=== PATIENT | male | born 1990 | race Two or more races ===

== ENCOUNTER → 2016-09-14 | Outpatient (REF) | payer OTHER | LOC: M SMT 16:53 | PROVIDERS: ATTEND Nurse Practitioner Women's Health | DX: N50.819 Testicular pain, unspecified (principal) | CPT/HCPCS: 81001; 87086; G0463 ==

== ENCOUNTER → 2016-10-06 | Day surgery (SDC) | payer OTHER ==
[~2016-10-06] VITALS: Ht 177.8 cm; Wt 61.2 kg
[~2016-10-06] MED LIST: BACITRACIN OINT 30GM As Ordered ONE; BUPIVACAINE HCL 0.25% 30 ML VIAL As Ordered ONE; BUPIVACAINE HCL 0.25% 30 ML VIAL XX ONE; LIDOCAINE 2% INJ 100 MG/5 ML SDV (FOR ANES.) As Ordered ONE; LR 1,000 ML IV SCH; MIDAZOLAM INJ 2 MG/2 ML VIAL (J2250) As Ordered ONE; NALOXONE INJ 0.4 MG/1 ML VIAL (J2310) As Ordered ONE; ONDANSETRON 4MG/2ML VIAL (J2405) As Ordered ONE; ONDANSETRON 4MG/2ML VIAL (J2405) IV PRN; PERCOCET 5MG/325MG TAB PO PRN; PROPOFOL 200 MG/20 ML VIAL As Ordered ONE; dexameTHASONE 4 MG/ML 1ML VIAL (J1100) As Ordered ONE; fentaNYL 250 MCG/5 ML INJECTION (J3010) As Ordered ONE
[2016-10-06] MEDS: fentaNYL 100 MCG/2 ML INJECTION (J3010) IV PRN ×3 (14:05→14:20)
[2016-10-06 16:00] VITALS: BP 126/73
--- NOTE | 2016-10-07 06:12 | RO ---
DATE OF PROCEDURE: 10/06/2016 PREPROCEDURE DIAGNOSIS: Retractile left testis. POSTPROCEDURE DIAGNOSIS: Retractile left testis. PROCEDURE: Left orchiopexy. SURGEON: Dr. Bayron Barnett INTAKE SPECIALIST: None. ANESTHESIA: General. OPERATIVE INDICATIONS: This is a 25-year-old male who has a retractile left testis and has a moderate amount of pain when it does retract. It was recommended he be brought to the operating room today for a left orchiopexy. DESCRIPTION OF PROCEDURE: The patient was brought to the operating room and general anesthesia was induced. Prophylactic antibiotics were infused. He was then placed in the supine position and prepped and draped in the usual sterile fashion. At this point, a 3 cm transverse incision was made over the left hemiscrotum. We then dissected down through the scrotal wall layers and then delivered the left testicle out of the scrotum. The tunica vaginalis was opened and the left testicle was examined and appeared normal. At this point, any areas of bleeding were controlled with the Bovie electrocautery. At this point, two separate #2-0 Vicryl sutures were placed through the tunica albuginea on the lateral sides of the testicles. The testicle was then placed back within the left hemiscrotum in its normal anatomic position. The previously placed #2-0 Vicryl sutures were then placed through the dartos on each side of the testicle and then tied down to secure the left testicle in the left hemiscrotum. Once that was done, the dartos was then closed with a running #2-0 Vicryl suture. The skin was then closed with interrupted #2-0 chromic suture. Local anesthesia was then applied and dressings were placed. This marked the conclusion of the procedure. The patient was then awakened from anesthesia and transported to the recovery room in stable condition. Estimated blood loss 5 mL. Complications: None. Specimens: None. Plan: The patient will followup in the clinic for a postoperative visit.
== END ==
LOC: M SDC 07:56
PROVIDERS: ATTEND Urology
DX: Q55.22 Retractile testis (principal); N50.819 Testicular pain, unspecified; Z88.8 Allergy status to other drugs, medicaments and biological substances
CPT/HCPCS: 54640; J0690; J1100; J2250; J2310; J2405; J3010